=== PATIENT | female | born 1945 ===

== ENCOUNTER 2021-07-23 08:41 | Outpatient (REF) | payer MEDICARE, SELFPAY ==
--- NOTE | 2021-07-23 08:53 | ECG_ITS ---
Test Reason : FATIGUE Blood Pressure : / mmHG Vent. Rate : 090 BPM Atrial Rate : 090 BPM P-R Int : 148 ms QRS Dur : 070 ms QT Int : 362 ms P-R-T Axes : 054 -09 050 degrees QTc Int : 442 ms Normal sinus rhythm Normal ECG No previous ECGs available Referred By: Corina Collins Electronically Signed By:ASHLEY CASTRO MD
[2021-07-23 09:03] LABS: MANUAL DIFF FLAG NO
[2021-07-23 09:10] LABS: Basophils Percent Auto 0.8 % (0-2); Eosinophils Absolute Auto 0.1 X10*3/uL (0.0-0.4); Eosinophils Percent Auto 2.3 % (0-4); Hematocrit 47.4 % (37.0-47.0); Hemoglobin 14.8 g/dl (12.0-16.0); Imm Gran Abs Auto 0.01 X10*3/uL (0.00-0.03); Imm Gran Pct Auto 0.3 % (0.0-0.4); Lymphocytes Absolute Auto 1.3 X10*3/uL (1.2-4.9); Lymphocytes Percent Auto 33.9 % (20-40); Mean Corpuscular HGB Conc 31.2 g/dl (31.0-35.0); Mean Corpuscular Hemoglobin 28.6 pg (27.0-33.0); Mean Corpuscular Volume 91.5 fL (80.0-98.0); Mean Platelet Volume 9.3 fL (9.4-12.3); Monocytes Absolute Auto 0.4 X10*3/uL (0.1-1.2); Monocytes Percent Auto 10.1 % (2-11); Neutrophils Percent Auto 52.6 % (45-73); Platelet Count 223 X10*3/uL (160-400); Red Blood Count 5.18 X10*6/uL (4.20-5.50); Red Cell Distribution Width 13.7 % (11.0-16.0); White Blood Count 3.9 X10*3/uL (4.8-10.8)
[2021-07-23 09:20] LABS: Estimated Average Glucose 131 mg/dL; Hemoglobin A1c % 6.2 %
[2021-07-23 09:48] LABS: Alanine Aminotransferase 14 U/L (0-31); Albumin Level 4.2 g/dL (3.5-5.0); Alkaline Phosphatase 88 U/L (39-117); Anion Gap 12 (12-20); Aspartate Amino Transferase 15 U/L (5-31); Bilirubin Total 0.6 mg/dL (0.0-1.0); Blood Urea Nitrogen 16 mg/dL (9-16); Calcium 9.4 mg/dL (8.4-10.2); Carbon Dioxide 28 mmol/L (22-29); Chloride 107 mmol/L (96-108); Cholesterol 164 mg/dL; Estimated Glomerular Filt Rate > 60; Glucose Fasting 116 mg/dL (60-99); HDL Cholesterol 60 mg/dL; LDL Cholesterol Calculated 85 mg/dl; Potassium 4.1 mmol/L (3.3-5.1); Sodium 143 mmol/L (135-145); Total Protein 7.5 g/dL (6.5-8.0); Triglycerides 99 mg/dL
[2021-07-23 10:09] LABS: TSH reflex Free T4 0.91 uIU/mL (0.32-4.0)
[2021-07-23 10:34] LABS: Folate 14.3 ng/mL (> or = 4.0); Vitamin B12 190 pg/mL (200-900)
[2021-07-27 13:37] LABS: Vitamin D 25-OH, D2 <4 ng/mL; Vitamin D 25-OH, D3 19 ng/mL; Vitamin D 25-OH, Total 19 ng/mL (30-100)
== END 2021-07-23 08:42 | disposition home or self-care (01) ==
LOC: HO.LAB 08:41
PROVIDERS: Visit Provider Nurse Practitioner Acute Care
DX: R53.83 Other fatigue (principal)
CPT/HCPCS: 36415; 80053; 80061; 82306; 82607; 82746; 83036; 84443; 85025; 93005

== ENCOUNTER 2022-11-28 09:52 | Emergency (ER) | payer MEDICARE, SELFPAY ==
--- NOTE | ~2022-11-28 | XR_ITS ---
EXAMINATION: XR CHEST CLINICAL INFORMATION: Chest pain. COMPARISON: None available. TECHNIQUE: Frontal view of the chest was obtained. FINDINGS: No significant abnormality is noted involving the heart, lungs, mediastinum, bony thorax or soft tissues. XR/XR chest 1V IMPRESSION: No acute cardiopulmonary process.
--- NOTE | ~2022-11-28 | CT_ITS ---
EXAMINATION: CT ABDOMEN AND PELVIS WITHOUT CONTRAST CLINICAL INFORMATION: Left flank pain. COMPARISON: None available. TECHNIQUE: Multidetector volumetric imaging was performed from the superior aspect of the liver through the pubic symphysis. Sagittal and coronal reformatted images were obtained on the technologist's workstation. This CT examination was performed using dose optimization techniques as appropriate, variously including the following: *Automated exposure control *Adjustment of mA and/or kV according to patient size (this includes techniques or standardized protocols for targeted exams where dose is matched to indication/reason for exam; i.e. extremities or head) *Use of iterative reconstruction technique DLP: 433 mGy-cm FINDINGS: LUNG BASES: Mild linear atelectatic changes are seen in the lingula. The lung bases are clear. There is a small hiatal hernia. The heart size is normal. Coronary artery calcifications are present. No pericardial effusion seen. LIVER, GALLBLADDER, AND BILIARY TREE: The liver is normal in size, shape, and attenuation. There is a 7 mm hypodensity right hepatic lobe. No additional lesions seen. There is no intrahepatic ductal dilatation. Gallbladder has been surgically removed. The proximal CBD is prominent measuring 2.2 cm. The distal segment measures 1.1 cm. PANCREAS: Unremarkable. SPLEEN: The spleen is unremarkable. A punctate calcification in the splenic hilum. ADRENAL GLANDS: Unremarkable. KIDNEYS AND URETERS: The kidneys are normal in size, shape, and attenuation there is a punctate 2 mm calcification lower pole calyx right kidney. No additional radiopaque calculi seen. There is no hydronephrosis. BLADDER: The bladder is nondistended and MTP GASTROINTESTINAL TRACT: There is diffuse colonic diverticuli, oral contrast and stool in the colon without distention. There is no diverticulitis seen. The small bowel loops are normal caliber. Appendix is not visualized. There is a calcified lymph nodes or phleboliths in the right lower quadrant. Appendix is normal caliber. ABDOMINAL WALL: Tiny medical hernia containing fat is noted. LYMPH NODES: No abnormal size retroperitoneal or pelvic lymphadenopathy seen. VASCULAR: Unremarkable. PELVIC VISCERA: Unremarkable. OSSEOUS STRUCTURES: There are degenerative disc changes at all lumbar disc level sparing the L1-L2. Mild degenerative disc changes also seen in lower dorsal spine with ventral spondylosis. There is mild dextroscoliosis of dorsal spine. CT/CT abdomen pelvis wo IV con IMPRESSION: 1. Diffuse colonic diverticulosis without diverticulitis. Mild constipation. 2. Punctate nonobstructive radiopaque calculi lower pole calyx right kidney. No hydronephrosis seen. 3. Small hiatal hernia. i Fleischner guidelines were followed.
--- NOTE | 2022-11-28 10:02 | ECG_ITS ---
Test Reason : CHEST PAIN Blood Pressure : / mmHG Vent. Rate : 126 BPM Atrial Rate : 126 BPM P-R Int : 140 ms QRS Dur : 072 ms QT Int : 302 ms P-R-T Axes : 042 -47 029 degrees QTc Int : 437 ms Sinus tachycardia Left axis deviation Abnormal ECG When compared with ECG of 23-JUL-2021 08:58, QRS axis Shifted left Heart rate has increased Referred By: Generic ED Physician Electronically Signed By:ARLEY DOVER
[2022-11-28 10:04] VITALS: BP 203/113; PULSE 123; RESP 14; TEMP 37.1; O2SAT 96; BMI 29.7
--- NOTE | 2022-11-28 10:14 | ED_ITS ---
HPI - Chest Pain General Chief Complaint: Chest Pain Stated Complaint: chest pain Time Seen by Provider: 11/28/22 10:12 Source: patient Mode of arrival: ambulatory Limitations: no limitations History of Present Illness HPI narrative: 77 yo female with PMHx significant for HDL, HTN, CAD s/p coronary stent placement, vitamin B12 and D deficiency, presents to the ED today with a complaint of left sided chest pain x1 week that starts in her upper left back and radiates to her left chest and LUQ. The pain is intermittent and cramping in character. Associated symptoms include chills, dizziness, diarrhea and dysuria x1 wk. Denies fever, headache, SOB, N/V, abdominal pain, hematuria, constipation/diarrhea, LE swelling/pain. No recent travel or surgeries. No sick contacts. Patient was noted to be hypertensive to 203/113 and tachycardic to 112 in triage. Reports taking her BP meds this morning, denies missing any doses. MD complaint: chest pain and other (flank pain) Onset (ago): week(s) (1) Timing of current episode: episodic Prior episodes: Yes Onset: during rest Pain location: left chest Pain radiation: back and abdomen Severity: moderate Quality: other (cramping) Relieving factors: nothing Exacerbating factors: palpation and movement Associated symptoms: nausea and dyspnea Treatment prior to arrival: none Risk Factors Coronary artery disease risk factors: hyperlipidemia and hypertension Related Data Previous Rx's Medication Instructions Recorded losartan 50 mg tablet 50 mg PO DAILY #90 tabs 01/29/22 atorvastatin 20 mg tablet 20 mg PO DAILY #90 tabs 01/31/22 clopidogrel 75 mg tablet 75 mg PO DAILY #90 tabs 01/31/22 metoprolol succinate 50 mg 50 mg PO DAILY #90 tabs 01/31/22 tablet,extended release 24 hr cyanocobalamin (vitamin B-12) 1,000 mcg PO DAILY #30 caps 05/06/22 1,000 mcg capsule cholecalciferol (vitamin D3) 50 50 mcg PO DAILY #90 caps 07/29/22 mcg (2,000 unit) capsule Allergies Allergy/AdvReac Type Severity Reaction Status Date / Time acetaminophen [From Vicodin] Allergy Mild Dizziness Verified 11/02/21 15:59 hydrocodone [From Vicodin] Allergy Mild Dizziness Verified 11/02/21 15:59 Review of Systems Review of Systems: Yes all other systems are reviewed and are negative PMFSH Past Medical History Attestation statement: The following information was validated with the patient. Source: old records reviewed and nursing notes reviewed Medical History CAD (coronary artery disease) Encounter to establish care Surgical History H/O heart artery stent H/O total hysterectomy S/P coronary artery stent placement Social History Social History Housing: House Alcohol intake: current Alcohol intake frequency: does not drink Patient Tobacco Use Status: Never used Tobacco Smoked in Last 30 Days: No Second Hand Smoke Exposure: No Use of substances other than those prescribed or required for medical reasons: No Advance Directives: No Advance Directives Information Provided: Yes Current occupational status: retired and disabled Cognitive needs: No Hearing needs: No Vision needs: Yes Physical Exam Vital Signs: Vital Signs: Last Vital Signs Temp 98.1 F 11/28/22 10:59 Pulse 100 11/28/22 12:06 Resp 15 11/28/22 12:06 BP 159/105 H 11/28/22 12:06 Pulse Ox 96 11/28/22 12:06 O2 Del Method Room Air 11/28/22 12:06 BMI result Body Mass Index 29.7 Vital signs notable for hypertension and tachycardia. Appearance: Alert. Oriented X3. No acute distress. Head: normocephalic, atraumatic. Eyes: Pupils equal, round and reactive to light. ENT: Pharynx normal. No tonsillar swelling or exudate. Neck: Normal inspection. Neck supple. CVS: Elevated heart rate with normal rhythm. Pulses normal. Chest: No ecchymosis, erythema or deformity. Chest wall tender to palpation bilaterally, no crepitus or deformity. Respiratory: No respiratory distress. Breath sounds normal. Abdomen: Soft, nondistended, diffusely tender to palpation, no rebound tenderness or guarding, +BS x4. + CVA tenderness on the left Skin: Skin warm and dry. Normal skin color. Normal skin turgor. No rashes. Extremities: No lower extremity edema. No joint swelling. Neuro/psych: Oriented X 3. No motor deficit. No sensory deficit. CN II-XII intact. Normal speech and cognition. Medications Administered Discontinued Medications Generic Name Dose Route Start Last Admin Trade Name Rohith PRN Reason Stop Dose Admin Ketorolac Tromethamine 15 mg 11/28/22 11:33 11/28/22 11:58 Ketorolac Tromethamine 15 Mg/Ml Vial IVPUSH 11/28/22 11:34 15 mg ONCE ONE Administration Metoprolol Succinate 50 mg 11/28/22 11:35 11/28/22 11:47 Metoprolol Succinate Er 50 Mg Tab.Er.24h PO 11/28/22 11:36 50 mg ONCE ONE Administration Protocol Medical Decision Making Medical Decision Making MDM Narrative: 77 yo female with PMHx significant for HDL, HTN, CAD s/p coronary aa stent placement, vitamin B12 and D deficiency, presents to the ED today with a complaint of left sided chest pain x1 week that beings in her upper left back and radiates to her left chest and LUQ and associated dizziness, chills, dysuria. Vital signs notable for hypertension and tachycardia. Exam remarkable for reproducible chest wall tenderness bilaterally, soft abdomen, diffusely TTP without rebound tenderness or guarding, nondistended, normoactive BS throughout, otherwise unremarkable. Plan: EKG, telemetry, CT abd/pelvis, labs, UA, trop Lab results are unremarkable. UA negative for infection. Troponin negative. CT scan negative. VS improved w/ metoprolol and toradol. COVID negative. Workup was unremarkable. Patient's symptoms are consistent with a viral syndrome and can be managed outpatient with supportive treatment. Discussed results with patient along with worrisome signs and symptoms prompting return to the ED. Patient is agreeable to plan. Stable for discharge. Differential Diagnosis Differential Diagnoses: The differential diagnosis associated with the pres entation includes viral syndome, UTI, acute on chronic hypertension, myocarditis/pericarditis, ACS, electrolyte abnormalities, dissection, PE, PNA, chest wall trauma, rib fracture Admission/Observation Consideration of admission/observation: Escalation of care including admission/observation considered Lab Data [facility] Lab Attestation statement: I reviewed the patient's lab results. 11/28/22 10:17 11/28/22 10:17 Labs: Lab Results 11/28/22 11/28/22 11/28/22 Range/Units 10:17 10:17 10:17 WBC 5.3 (4.8-10.8) X10*3/uL RBC 5.44 (4.20-5.50) X10*6/uL Hgb 15.2 (12.0-16.0) g/dl Hct 47.3 H (37.0-47.0) % MCV 86.9 (80.0-98.0) fL MCH 27.9 (27.0-33.0) pg MCHC 32.1 (31.0-35.0) g/dl RDW 13.8 (11.0-16.0) % Plt Count 248 (160-400) X10*3/uL MPV 9.8 (9.4-12.3) fL Immature Gran % (Auto) 0.2 (0.0-0.4) % Neut % (Auto) 74.5 H (45-73) % Lymph % (Auto) 19.2 L (20-40) % [place] % (Auto) 5.7 (2-11) % Eos % (Auto) 0.2 (0-4) % Baso % (Auto) 0.2 (0-2) % Lymph # (Auto) 1.0 L (1.2-4.9) X10*3/uL [place] # (Auto) 0.3 (0.1-1.2) X10*3/uL Eos # (Auto) 0.0 (0.0-0.4) X10*3/uL Baso # (Auto) 0.0 (0.0-0.2) X10*3/uL Abs Immat Gran (auto) 0.01 (0.00-0.03) X10*3/uL Absolute Neuts (auto) 3.9 (2.0-8.3) x10*3/uL Absolute Nucleated RBC 0.000 (0.0-0.012) X10*3/uL Nucleated RBC % (auto) 0.0 (0.0-0.2) /100WBC Sodium 141 (135-145) mmol/L Potassium 4.1 (3.3-5.1) mmol/L Chloride 107 (96-108) mmol/L Carbon Dioxide 23 (22-29) mmol/L Anion Gap 15 (12-20) BUN 13 (9-16) mg/dL Creatinine 0.78 (0.5-1.4) mg/dL Estim Creat Clear Calc 40.2 Estimated GFR > 60 Random Glucose 176 H (60-115) mg/dL Calcium 9.7 (8.4-10.2) mg/dL Troponin I High Sens < 2.7 (<3.5-17.0) ng/L Urine Color Urine Appearance Urine pH (5.0-9.0) Ur Specific [place] (1.005-1.025) Urine Protein (Neg-Trace) mg/dL Urine Glucose (UA) (Negative) mg/dL Urine Ketones (Negative) mg/dL Urine Blood (Negative) Urine Nitrite (Negative) Ur Leukocyte Esterase (Negative) COVID-19 (JOSEFA) (Negative) COVID-19 Clin Com 11/28/22 11/28/22 Range/Units 11:21 13:13 WBC (4.8-10.8) X10*3/uL RBC (4.20-5.50) X10*6/uL Hgb (12.0-16.0) g/dl Hct (37.0-47.0) % MCV (80.0-98.0) fL MCH (27.0-33.0) pg MCHC (31.0-35.0) g/dl RDW (11.0-16.0) % Plt Count (160-400) X10*3/uL MPV (9.4-12.3) fL Immature Gran % (Auto) (0.0-0.4) % Neut % (Auto) (45-73) % Lymph % (Auto) (20-40) % [place] % (Auto) (2-11) % Eos % (Auto) (0-4) % Baso % (Auto) (0-2) % Lymph # (Auto) (1.2-4.9) X10*3/uL [place] # (Auto) (0.1-1.2) X10*3/uL Eos # (Auto) (0.0-0.4) X10*3/uL Baso # (Auto) (0.0-0.2) X10*3/uL Abs Immat Gran (auto) (0.00-0.03) X10*3/uL Absolute Neuts (auto) (2.0-8.3) x10*3/uL Absolute Nucleated RBC (0.0-0.012) X10*3/uL Nucleated RBC % (auto) (0.0-0.2) /100WBC Sodium (135-145) mmol/L Potassium (3.3-5.1) mmol/L Chloride (96-108) mmol/L Carbon Dioxide (22-29) mmol/L Anion Gap (12-20) BUN (9-16) mg/dL Creatinine (0.5-1.4) mg/dL Estim Creat Clear Calc Estimated GFR Random Glucose (60-115) mg/dL Calcium (8.4-10.2) mg/dL Troponin I High Sens (<3.5-17.0) ng/L Urine Color Yellow Urine Appearance Clear Urine pH 6.0 (5.0-9.0) Ur Specific [place] 1.010 (1.005-1.025) Urine Protein Negative (Neg-Trace) mg/dL Urine Glucose (UA) Negative (Negative) mg/dL Urine Ketones Negative (Negative) mg/dL Urine Blood Negative (Negative) Urine Nitrite Negative (Negative) Ur Leukocyte Esterase Negative (Negative) COVID-19 (JOSEFA) Negative (Negative) COVID-19 Clin Com See Note Independent Interpretation I performed an independent interpretation of an: EKG, Plain X-Ray and CT Scan Interpretation: EKG showing sinus tachycarda with a rate of 126 bpm, QT interval of 302, left axis deviation, no ischemic changes CXR clear with focal infiltrate CT without hydronephrosis or obvious kidney stone, no obstructive bowel gas pattern Radiology Impression Discussion of test interpretation with radiology: I have reviewed the radiologist's reading. Radiologist Impression: CT/CT abdomen pelvis wo IV con IMPRESSION: 1.? Diffuse colonic diverticulosis without diverticulitis. Mild constipation. 2.? Punctate nonobstructive radiopaque calculi lower pole calyx right kidney. No hydronephrosis seen. 3.? Small hiatal hernia. i XR/XR chest 1V IMPRESSION: No acute cardiopulmonary process. Independent Historian Clinical information obtained from an independent historian. History obtained from or confirmed by: Other (adult daughter at bedside) External Record Review External record reviewed: Outpatient record, Prior outpatient labs and Prior outpatient radiology Prescription Management I considered prescription management with: Pain Medication and Antibiotic Chronic Conditions Patient?s care impacted by: Hypertension Critical Care Time Critical Care Time Critical Care Time: No Discharge Plan Discharge Clinical Impression: Atypical chest pain, Hypertension, Acute viral syndrome Patient Disposition: Home, Self-Care Instructions: Chest Pain (ED), Viral Syndrome (ED), Hypertension (ED) Additional Instructions: Your workup was reassuring. Your labs are all within normal limits. Your COVID test was negative. The xray of your chest was normal. XR chest 1V IMPRESSION: No acute cardiopulmonary process. Your symptoms are likely due to a virus and are self limited Take tylenol and Ibuprofen as needed for pain. The CT scan of your abdomen showed mild constipation, small hiatal hernia, and noncobstructive kidney stones which are benign and can be followed up outpatient with your PCP. CT abdomen pelvis wo IV con IMPRESSION: 1.? Diffuse colonic diverticulosis without diverticulitis. Mild constipation. 2.? Punctate nonobstructive radiopaque calculi lower pole calyx right kidney. No hydronephrosis seen. 3.? Small hiatal hernia.? Please follow up with your primary care doctor. Return to the ED if your symptoms worsen. Prescriptions: No Action losartan 50 mg tablet 50 mg PO DAILY Qty: 90 1RF clopidogrel 75 mg tablet 75 mg PO DAILY Qty: 90 1RF metoprolol succinate 50 mg tablet extended release 24 hr 50 mg PO DAILY Qty: 90 1RF atorvastatin 20 mg tablet 20 mg PO DAILY Qty: 90 1RF cyanocobalamin (vitamin B-12) 1,000 mcg capsule 1,000 mcg PO DAILY Qty: 30 3RF cholecalciferol (vitamin D3) 50 mcg (2,000 unit) capsule 50 mcg PO DAILY Qty: 90 3RF Referrals: Yamini Presley FNP [Primary Care Provider] -
[2022-11-28 10:29] LABS: MANUAL DIFF FLAG NO
[2022-11-28 10:33] LABS: Basophils Percent Auto 0.2 % (0-2); Eosinophils Percent Auto 0.2 % (0-4); Hematocrit 47.3 % (37.0-47.0); Hemoglobin 15.2 g/dl (12.0-16.0); Imm Gran Abs Auto 0.01 X10*3/uL (0.00-0.03); Imm Gran Pct Auto 0.2 % (0.0-0.4); Lymphocytes Percent Auto 19.2 % (20-40); Mean Corpuscular HGB Conc 32.1 g/dl (31.0-35.0); Mean Corpuscular Hemoglobin 27.9 pg (27.0-33.0); Mean Corpuscular Volume 86.9 fL (80.0-98.0); Mean Platelet Volume 9.8 fL (9.4-12.3); Monocytes Absolute Auto 0.3 X10*3/uL (0.1-1.2); Monocytes Percent Auto 5.7 % (2-11); Neutrophils Absolute Auto 3.9 x10*3/uL (2.0-8.3); Neutrophils Percent Auto 74.5 % (45-73); Platelet Count 248 X10*3/uL (160-400); Red Blood Count 5.44 X10*6/uL (4.20-5.50); Red Cell Distribution Width 13.8 % (11.0-16.0); White Blood Count 5.3 X10*3/uL (4.8-10.8)
[2022-11-28 10:55] LABS: Anion Gap 15 (12-20); Blood Urea Nitrogen 13 mg/dL (9-16); Calcium 9.7 mg/dL (8.4-10.2); Carbon Dioxide 23 mmol/L (22-29); Chloride 107 mmol/L (96-108); Creatinine Clr Calc Pharmacy 40.2; Estimated Glomerular Filt Rate > 60; Glucose Random 176 mg/dL (60-115); Potassium 4.1 mmol/L (3.3-5.1); Sodium 141 mmol/L (135-145)
[2022-11-28 10:59] VITALS: BP 167/111; PULSE 120; RESP 19; TEMP 36.7; O2SAT 95
[2022-11-28 11:05] LABS: Troponin-I High Sensitivity < 2.7 ng/L (<3.5-17.0)
[2022-11-28 11:29] LABS: Appearance Urine Clear; Color Urine Yellow; Glucose Urine UA Negative (Negative); Leukocyte Esterase Urine Negative (Negative); Nitrite Urine Negative (Negative); Urine Blood Negative (Negative); Urine Ketones Negative (Negative); Urine Protein Negative (Neg-Trace)
[2022-11-28] MEDS: Metoprolol Succinate ER 50 MG TAB.ER.24H PO (11:47)
[2022-11-28] MEDS: Ketorolac Tromethamine 15 MG/ML VIAL IVPUSH (11:58)
[2022-11-28 12:06] VITALS: BP 159/105; PULSE 100; RESP 15; O2SAT 96
[2022-11-28 13:45] LABS: COVID-19 Test Negative (Negative); IDNOW Serial# BCCEAD1C
== END 2022-11-28 14:38 | disposition home or self-care (01) ==
PROVIDERS: Physician Assistant; Emergency Provider Emergency Medicine; PCP Nurse Practitioner Family
DX: B34.9 Viral infection, unspecified (principal); R07.89 Other chest pain; I10 Essential (primary) hypertension; Z20.822 Contact with and (suspected) exposure to COVID-19; K57.30 Diverticulosis of large intestine without perforation or abscess without bleeding; N20.0 Calculus of kidney; K44.9 Diaphragmatic hernia without obstruction or gangrene; E78.5 Hyperlipidemia, unspecified; Z79.899 Other long term (current) drug therapy
CPT/HCPCS: 36415; 71045; 74176; 80048; 81003; 84484; 85025; 87635; 93005; 96374; 99284; 99285; J1885

== ENCOUNTER 2022-12-14 12:44 | Emergency (ER) | payer MEDICARE, SELFPAY ==
--- NOTE | ~2022-12-14 | CT_ITS ---
EXAMINATION: CT ABDOMEN AND PELVIS WITH CONTRAST CLINICAL INFORMATION: Rectal bleeding, pain COMPARISON: CT abdomen pelvis 11/28/2022 TECHNIQUE: Multidetector volumetric images were obtained from the superior aspect of the liver through the pubic symphysis following administration 85 mL of Omnipaque 350 intravenous contrast. Sagittal and coronal reformatted images were obtained on the technologist's workstation. Oral contrast: No This CT examination was performed using dose optimization techniques as appropriate, variously including the following: *Automated exposure control *Adjustment of mA and/or kV according to patient size (this includes techniques or standardized protocols for targeted exams where dose is matched to indication/reason for exam; i.e. extremities or head) *Use of iterative reconstruction technique DLP: 370 mGy-cm FINDINGS: LUNG BASES: Mild cylindrical right middle and bilateral lower lobe bronchiectasis. Coronary artery calcification is present. ABDOMINAL AND PELVIC WALL: Unremarkable. LIVER AND BILIARY TREE: Hypoattenuating hepatic parenchyma compatible with hepatic steatosis. Hepatic hypodensities too small to characterize. Stable moderate extrahepatic and mild intrahepatic biliary duct dilatation. GALLBLADDER: Status post cholecystectomy. PANCREAS: Unremarkable. SPLEEN: Accessory splenule noted. ADRENAL GLANDS: Unremarkable. KIDNEYS AND URETERS: Punctate nonobstructing right lower pole renal stone similar to prior. GASTROINTESTINAL TRACT: Moderate hiatal hernia. Extensive colonic diverticulosis without findings to suggest diverticulitis. Single phase of contrast timing and lack of a noncontrast phase limits assessment for active bleeding. There is hyperdense material noted within the sigmoid colon, though favored to reflect chronic inspissated material given the background of extensive diverticulosis and appears similar to prior. Normal appendix. VASCULAR: Unremarkable. LYMPH NODES/PERITONEUM: No lymphadenopathy. FREE FLUID: None. BLADDER: Unremarkable. PELVIC VISCERA: Status post hysterectomy. OSSEOUS STRUCTURES: Multiple degenerative disc disease. Grade 1 retrolisthesis of T12 on L1. Levoconvex curvature of the lumbar spine. CT/CT abdomen pelvis w IV con IMPRESSION: 1. Extensive colonic diverticulosis without findings to suggest diverticulitis. Single phase of contrast timing and lack of a noncontrast phase limits assessment for active bleeding. Hyperdense material noted within the sigmoid colon, though favored to reflect chronic inspissated material given the background of extensive diverticulosis and appears similar to prior. 2. Hepatic steatosis. 3. Stable moderate extrahepatic and mild intrahepatic biliary duct dilatation. Recommend correlation with LFTs and if not obtained consider MRCP for further evaluation. 4. Mild cylindrical right middle and bilateral lower lobe bronchiectasis. 5. Punctate nonobstructing right lower pole renal stone similar to prior.
--- NOTE | 2022-12-14 12:48 | ECG_ITS ---
Test Reason : CHEST PAIN Blood Pressure : / mmHG Vent. Rate : 098 BPM Atrial Rate : 098 BPM P-R Int : 138 ms QRS Dur : 076 ms QT Int : 358 ms P-R-T Axes : 030 -41 034 degrees QTc Int : 457 ms Normal sinus rhythm Left axis deviation Abnormal ECG When compared with ECG of 28-NOV-2022 10:11, Heart rate has decreased Referred By: Douglas Mcadams Electronically Signed By:ARLEY DOVER
[2022-12-14 12:53] VITALS: BP 157/99; PULSE 105; RESP 15; TEMP 36.4; O2SAT 95; BMI 30.2
--- NOTE | 2022-12-14 12:58 | ED.GENADULT ---
HPI - General Adult General Chief complaint: Abdominal Pain Stated complaint: Bleeding, Chest pain Time Seen by Provider: 12/14/22 13:11 Source: patient and family (Son) Mode of arrival: ambulatory Limitations: no limitations History of Present Illness HPI narrative: A 77-year-old female came in for evaluation of left-sided abdominal pain and blood per rectum. Start to have left upper quadrant abdominal pain feels like gas colicky pain that is been constant since yesterday patient was seen and evaluated at [facility] yesterday and was discharged home. Returned today with her son for concern of multiple about 5 times bloody bowel movements had 2 bloody bowel movement in the ED. patient also been feeling left-sided chest pain/pressure. No SOB, no dizziness. No AC therapy, taking Plavix. Past surgical history significant for total hysterectomy. Related Data Home Medications Medication Instructions Recorded Confirmed aspirin 81 mg tablet,delayed 81 mg PO DAILY 12/14/22 12/14/22 release cyanocobalamin (vitamin B-12) 1,000 mcg PO DAILY 12/14/22 12/14/22 1,000 mcg capsule losartan 50 mg tablet 50 mg PO DAILY 12/14/22 12/14/22 Previous Rx's Medication Instructions Recorded atorvastatin 20 mg tablet 20 mg PO DAILY #90 tabs 01/31/22 clopidogrel 75 mg tablet 75 mg PO DAILY #90 tabs 01/31/22 metoprolol succinate 50 mg 50 mg PO DAILY #90 tabs 01/31/22 tablet,extended release 24 hr cholecalciferol (vitamin D3) 50 50 mcg PO DAILY #90 caps 07/29/22 mcg (2,000 unit) capsule Allergies Allergy/AdvReac Type Severity Reaction Status Date / Time acetaminophen [From Vicodin] Allergy Mild Dizziness Verified 11/02/21 15:59 hydrocodone [From Vicodin] Allergy Mild Dizziness Verified 11/02/21 15:59 Review of Systems Review of Systems: All other systems are reviewed and are negative Constitutional: Reports as per HPI and Reports no additional constitutional complaints Eyes: Reports as per HPI and Reports no additional eye complaints Reports system reviewed and no additional complaints, except as documented Cardiovascular: Reports as per HPI and Reports no additional cardiovascular complaints Respiratory: Reports as per HPI and Reports no additional respiratory complaints Gastrointestinal: Reports as per HPI and Reports no additional gastrointestinal complaints Genitourinary: Reports no additional female genitourinary complaints Musculoskeletal: Reports no additional musculoskeletal complaints Skin/Breast: Reports system reviewed and no additional complaints, except as docu Psychiatric: Reports no additional psychiatric complaints Endocrine: Reports no additional endocrine complaints Hematologic/Lymphatic: Reports no additional hematologic/lymphatic complaints Allergic/Immunologic: Reports no additional allergic/immunologic complaints Reports system reviewed and no additional complaints, except as documented and Reports Abnormal speech present [facility] Past Medical History Medical History Encounter to establish care CAD (coronary artery disease) Surgical History S/P coronary artery stent placement H/O heart artery stent H/O total hysterectomy Social History Social History Housing: House Alcohol intake: never Patient Tobacco Use Status: Never used Tobacco Smoked in Last 30 Days: No Second Hand Smoke Exposure: No Use of substances other than those prescribed or required for medical reasons: No Advance Directives: No Advance Directives Information Provided: Yes Current occupational status: retired and disabled Cognitive needs: No Hearing needs: No Vision needs: Yes Physical Exam ED Vital Signs: Vital Signs - 24 hr 12/14/22 12:53 12/14/22 14:50 12/14/22 15:06 Temperature 97.5 F 97.8 F Pulse Rate 105 H 85 83 Respiratory Rate 15 20 Blood Pressure 157/99 H 175/82 H 154/81 H Pulse Oximetry 95 100 Oxygen Delivery Method Room Air Room Air 12/14/22 15:06 12/14/22 15:06 12/14/22 16:34 Temperature Pulse Rate 93 94 93 Respiratory Rate 16 Blood Pressure 137/89 154/94 H 124/72 Pulse Oximetry 94 Oxygen Delivery Method Room Air BMI result Body Mass Index 30.2 Vital signs have been reviewed and appear to be correct. Blood pressure elevated. Heart rate elevated. Respiratory rate normal. Temperature normal. Oxygen saturation normal. Appearance: Alert. Oriented X3. No acute distress. Head: Normal external exam. Normocephalic. Atraumatic. No Smith signs noted. No raccoon eyes noted Eyes: PERRLA. EOMI. Conjunctiva and sclera normal. Eyelids normal. ENT: TM's Normal. Pharynx normal. Uvula midline. Moist mucous membranes. No trismus noted. No drooling noted. No muffled voice noted. Neck: Normal inspection. Neck supple. FROM. No adenopathy. Thyroid Normal. No meningeal signs. No neck mass noted. CVS: Normal heart rate and rhythm. Heart sound normal. No murmurs noted. Pulses normal throughout. Respiratory: No respiratory distress. Painless inspiration. Breath sounds normal. No wheezes/rales/rhonchi noted. Chest nontender. No accessory muscle usage noted or decreased air movement noted. Abdomen: Soft, left-sided abdominal tenderness, no rebound tenderness, no guarding. Bowel sounds normal in all 4 quadrants. No distention noted. No organomegaly noted. No visible injury noted. Rectal exam: Hematochezia Back: No CVA tenderness. Full range of motion noted. Skin: Skin warm and dry. Normal skin color. Normal skin turgor. No rashes/lesions/lacerations noted. Extremities: No lower extremity edema. Extremities exhibit normal range of motion. Extremities nontender. Neuro: Oriented X 3. Cranial nerve exam: II-XII are grossly intact No motor deficit. No sensory deficit. Reflexes normal. Course Course Course Narrative: Patient accompanied by her son Simon phone [phone], complains of chest pain, was seen yesterday at [facility] for the same and discharged And overnight she developed rectal bleeding with large amounts of blood in the stool 6 separate times, no vomiting, no significant abdominal pain She has history of cardiac stent and high blood pressure Labs are sent Reevaluation(s) Reevaluation #1: A 77-year-old female hemodynamically stable with hematochezia likely lower GI bleed due to diverticular disease, CT abdomen and pelvis showing extensive diverticular disease. Stable H&H. 1. Type and screen ready. 2. Admit for further GI evaluation. 3. Monitoring for hemodynamic instability. Time: 17:15 Reevaluation #2: After patient was evaluated by our hospitalist case was discussed with Dr. Ernesto BLAIR on-call today who recommended to transfer the patient to a facility where IR is available (IR is not available in our facility over the weekend). Patient had 5 bloody bowel movement in the ED, hemodynamically stable but the concern of patient becoming hemodynamically unstable the case was accepted to [facility] Emergency Department accepting physician is Dr. Joseph Knight. The case discussed with Rosario Montes (son) over the phone [phone]. Time: 18:00 Medical Decision Making Differential Diagnosis Differential Diagnoses: The differential diagnosis associated with the presentation includes (Lower GI bleed, colitis, diverticular disease, coagulopathy, severe anemia, electrolyte abnormality.) Admission/Observation Consideration of admission/observation: Escalation of care including admission/observation considered Consult Healthcare Provider Management of the patient was discussed with: Hospitalist (Dr. Salvador) Lab Data MDM Lab Attestation statement: I reviewed the patient's lab results. 12/14/22 13:28 12/14/22 14:50 Labs: Lab Results 12/14/22 12/14/22 12/14/22 Range/Units 13:28 13:34 14:50 WBC 5.8 (4.8-10.8) X10*3/uL RBC 5.27 (4.20-5.50) X10*6/uL Hgb 14.6 (12.0-16.0) g/dl Hct 45.9 (37.0-47.0) % MCV 87.1 (80.0-98.0) fL MCH 27.7 (27.0-33.0) pg MCHC 31.8 (31.0-35.0) g/dl RDW 14.2 (11.0-16.0) % Plt Count 248 (160-400) X10*3/uL MPV 9.6 (9.4-12.3) fL Immature Gran % (Auto) 0.3 (0.0-0.4) % Neut % (Auto) 74.9 H (45-73) % Lymph % (Auto) 14.6 L (20-40) % Blaine % (Auto) 8.7 (2-11) % Eos % (Auto) 1.2 (0-4) % Baso % (Auto) 0.3 (0-2) % Lymph # (Auto) 0.9 L (1.2-4.9) X10*3/uL Blaine # (Auto) 0.5 (0.1-1.2) X10*3/uL Eos # (Auto) 0.1 (0.0-0.4) X10*3/uL Baso # (Auto) 0.0 (0.0-0.2) X10*3/uL Abs Immat Gran (auto) 0.02 (0.00-0.03) X10*3/uL Absolute Neuts (auto) 4.4 (2.0-8.3) x10*3/uL Absolute Nucleated RBC 0.000 (0.0-0.012) X10*3/uL Nucleated RBC % (auto) 0.0 (0.0-0.2) /100WBC Sodium 143 (135-145) mmol/L Potassium 4.0 (3.3-5.1) mmol/L Chloride 111 H (96-108) mmol/L Carbon Dioxide 24 (22-29) mmol/L Anion Gap 12 (12-20) BUN 12 (9-16) mg/dL Creatinine 0.70 (0.5-1.4) mg/dL Estim Creat Clear Calc 45.2 Estimated GFR > 60 Random Glucose 123 H (60-115) mg/dL Calcium 8.9 D (8.4-10.2) mg/dL Total Bilirubin 0.6 (0.0-1.0) mg/dL Direct Bilirubin 0.2 (0.0-0.5) mg/dL AST 20 (5-31) U/L ALT 23 (0-31) U/L Alkaline Phosphatase 80 (39-117) U/L Troponin I High Sens < 2.7 (<3.5-17.0) ng/L Total Protein 6.9 (6.5-8.0) g/dL Albumin 3.8 (3.5-5.0) g/dL Lipase 12 (8-78) U/L Stool Occult Blood POSITIVE (NEGATIVE) Independent Interpretation I performed an independent interpretation of an: CT Scan (Abdomen and pelvis: No acute intra-abdominal pathology.) Radiology Impression Discussion of test interpretation with radiology: I have reviewed the radiologist's reading. (1. Extensive colonic diverticulosis without findings to suggest diverticulitis. Single phase of contrast timing and lack of a noncontrast phase limits assessment for active bleeding. Hyperdense material noted within the sigmoid colon, though favored to reflect chronic inspissated material given the) Critical Care Time Critical Care Time Critical Care Time: Yes Total Critical Care Time: 60 Attestation: I spent 60 minutes providing critical care service to the patient, this including time spent at the bedside to evaluate the patient, reassess the patient, monitoring vital signs, review labs, and radiographic studies, counseling the patient/family, discussing the case with consultants, disposition the patient. Discharge Plan Discharge Clinical Impression: Hematochezia Patient Disposition: [facility] Transfer Details: to the emergency department. Prescriptions: No Action clopidogrel 75 mg tablet 75 mg PO DAILY Qty: 90 1RF metoprolol succinate 50 mg tablet extended release 24 hr 50 mg PO DAILY Qty: 90 1RF atorvastatin 20 mg tablet 20 mg PO DAILY Qty: 90 1RF cholecalciferol (vitamin D3) 50 mcg (2,000 unit) capsule 50 mcg PO DAILY Qty: 90 3RF losartan 50 mg tablet 50 mg PO DAILY aspirin 81 mg Tablet,Delayed Release (Dr/Ec) 81 mg PO DAILY cyanocobalamin (vitamin B-12) 1,000 mcg capsule 1,000 mcg PO DAILY
--- NOTE | 2022-12-14 13:00 | PC.NURSE ---
pt a&ox3. respirations even and unlabored. pt reports going to [facility] to be seen for chest pain where she got discharged this morning. after the pt left [facility] and went home the pt noticed she was bleeding bright red blood rectally. pt reports seeing blood clots in the blood as well. pt reports abdominal pain when she passes stool. abdomen soft non tender to touch with active bowel sounds. pt denies chest pain and SOB at this time. pt normal sinus on tele.
[2022-12-14 13:33] LABS: MANUAL DIFF FLAG NO
[2022-12-14 13:36] LABS: Basophils Percent Auto 0.3 % (0-2); Eosinophils Absolute Auto 0.1 X10*3/uL (0.0-0.4); Eosinophils Percent Auto 1.2 % (0-4); Hematocrit 45.9 % (37.0-47.0); Hemoglobin 14.6 g/dl (12.0-16.0); Imm Gran Abs Auto 0.02 X10*3/uL (0.00-0.03); Imm Gran Pct Auto 0.3 % (0.0-0.4); Lymphocytes Absolute Auto 0.9 X10*3/uL (1.2-4.9); Lymphocytes Percent Auto 14.6 % (20-40); Mean Corpuscular HGB Conc 31.8 g/dl (31.0-35.0); Mean Corpuscular Hemoglobin 27.7 pg (27.0-33.0); Mean Corpuscular Volume 87.1 fL (80.0-98.0); Mean Platelet Volume 9.6 fL (9.4-12.3); Monocytes Absolute Auto 0.5 X10*3/uL (0.1-1.2); Monocytes Percent Auto 8.7 % (2-11); Neutrophils Absolute Auto 4.4 x10*3/uL (2.0-8.3); Neutrophils Percent Auto 74.9 % (45-73); Platelet Count 248 X10*3/uL (160-400); Red Blood Count 5.27 X10*6/uL (4.20-5.50); Red Cell Distribution Width 14.2 % (11.0-16.0); White Blood Count 5.8 X10*3/uL (4.8-10.8)
[2022-12-14 13:45] LABS: OBS Int Ctl Valid YES; OBS1 POSITIVE (NEGATIVE)
--- NOTE | 2022-12-14 14:43 | PC.NURSE ---
this RN assisted pt to the bedside commode. bright red blood noted in the commode. pt ambulated with steady gait.
[2022-12-14 14:50] VITALS: BP 175/82; PULSE 85; RESP 20; TEMP 36.6; O2SAT 100
[2022-12-14 15:06] VITALS: BP 137/89; BP 154/81; BP 154/94; PULSE 83; PULSE 93; PULSE 94
[2022-12-14 15:15] LABS: Alanine Aminotransferase 23 U/L (0-31); Albumin Level 3.8 g/dL (3.5-5.0); Alkaline Phosphatase 80 U/L (39-117); Anion Gap 12 (12-20); Aspartate Amino Transferase 20 U/L (5-31); Bilirubin Direct 0.2 mg/dL (0.0-0.5); Bilirubin Total 0.6 mg/dL (0.0-1.0); Blood Urea Nitrogen 12 mg/dL (9-16); Calcium 8.9 mg/dL (8.4-10.2); Carbon Dioxide 24 mmol/L (22-29); Chloride 111 mmol/L (96-108); Creatinine Clr Calc Pharmacy 45.2; Estimated Glomerular Filt Rate > 60; Glucose Random 123 mg/dL (60-115); Lipase 12 U/L (8-78); Sodium 143 mmol/L (135-145); Total Protein 6.9 g/dL (6.5-8.0)
[2022-12-14 15:29] LABS: Troponin-I High Sensitivity < 2.7 ng/L (<3.5-17.0)
[2022-12-14 16:34] VITALS: BP 124/72; PULSE 93; RESP 16; O2SAT 94
--- NOTE | 2022-12-14 16:35 | PC.NURSE ---
respirations even and unlabored. pt resting comfortably. pt reports 5/10 left abdominal pain at this time. pt normal sinus on tele.
--- NOTE | 2022-12-14 17:58 | PHA.MEDREC ---
Pharmacy Consult ? Medication Reconciliation Pharmacy has completed the medication reconciliation.
[2022-12-14] MEDS: iohexoL 350 MG/ML 100 ML INFUS..BTL IV (18:20)
--- NOTE | 2022-12-14 18:39 | PC.NURSE ---
pt report given to Maryann PEREZ at [facility].
--- NOTE | 2022-12-14 18:41 | PC.NURSE ---
report given to EMS.
== END 2022-12-14 18:52 | disposition short-term general hospital (02) ==
PROVIDERS: Physician Assistant Medical; Emergency Provider Emergency Medicine; PCP Nurse Practitioner Family
DX: K92.1 Melena (principal); R10.12 Left upper quadrant pain; R07.9 Chest pain, unspecified; N20.0 Calculus of kidney; K57.30 Diverticulosis of large intestine without perforation or abscess without bleeding; J47.9 Bronchiectasis, uncomplicated; K76.0 Fatty (change of) liver, not elsewhere classified; Z90.710 Acquired absence of both cervix and uterus; Z79.82 Long term (current) use of aspirin; Z79.899 Other long term (current) drug therapy
CPT/HCPCS: 36415; 74177; 80048; 80076; 82272; 83690; 84484; 85025; 93005; 99285; Q9967